=== PATIENT | female | born 1945 | race Caucasian/White ===

== ENCOUNTER 2022-01-27 21:35 | Inpatient (IN) | payer OTHER ==
[~2022-01-27] VITALS: Ht 162.6 cm; Wt 70.8 kg
[2022-01-27 21:36] VITALS: BP 167/71
[2022-01-27] MEDS ORDERED: ACETAMINOPHEN EXTRA STRENGTH 500 MG TAB PO ONE (22:10)
--- NOTE | 2022-01-27 22:36 | NUR ---
ATTACHED PATIENT ON THE PUREWICK. PATIENT ABLE TO TURN BUT DIFFICULTY TURNING D/T PAIN. MEDICATED PT WITH TYLENOL, WAITIN TO TAKE INTO EFFECT
[2022-01-27] MEDS ORDERED: ACET-10509 PO (22:52)
--- NOTE | 2022-01-27 23:49 | NUR ---
pt to CT and XR
--- NOTE | 2022-01-28 01:11 | NUR ---
Spoke with pt daughter Paulette about updates.
--- NOTE | 2022-01-28 01:51 | NUR ---
pt attempted to ambulated to the bathroom, pt walking with difficulty needs assistance. pt also has pain. ER made aware.
--- NOTE | 2022-01-28 01:58 | NUR ---
STEF THORPE re-assessed pt and will have CT scan of the Pelvis.
--- NOTE | 2022-01-28 01:59 | NUR ---
called sunni Caldwell for further updates.
[2022-01-28] MEDS ORDERED: HYDROcodone/APAP 5/325 MG 1 TAB TAB PO ONE (02:25)
[2022-01-28] MEDS ORDERED: HYDROcodone/APAP 5/325 MG 1 TAB TAB ONE (02:27)
--- NOTE | 2022-01-28 02:35 | NUR ---
PT TO CT
--- NOTE | 2022-01-28 02:56 | NUR ---
PT BACK FROM CT
--- NOTE | 2022-01-28 06:06 | NUR ---
swabbed pt for covid and sent to lab
--- NOTE | 2022-01-28 06:16 | NUR ---
attached purewick on patient. patient tolerated well but does c/o pain from movement.
[2022-01-28 06:36] LABS: ANION GAP 8.7 (8-16); CARBON DIOXIDE 26.7 mmol/L (21-32); CHLORIDE 106 mmol/L (98-107); CREATININE 0.7 mg/dL (0.6-1.3); GLUCOSE 131 mg/dL (74-106); POTASSIUM 4.4 mmol/L (3.5-5.1); SODIUM SERUM 137 mmol/L (136-145)
--- NOTE | 2022-01-28 06:39 | NUR ---
spoke with Paulette the daughter about pt condition and update that pt will be admitted or tx to [place].
[2022-01-28 06:41] LABS: BASOPHILS # (AUTO) 0.2 K/uL (0.00-0.22); BASOPHILS % (AUTO) 1.2 % (0.0-2.0); EOSINOPHILS # (AUTO) 0.2 K/uL (0-0.4); EOSINOPHILS % (AUTO) 1.7 % (0.0-4.0); HEMATOCRIT 35.1 % (36-48); HEMOGLOBIN 11.8 g/dL (12.0-16.0); LYMPHOCYTES # (AUTO) 2.4 K/uL (2.5-16.5); MEAN CORPUSCULAR HEMOGLOBIN 31 pg (27-31); MEAN CORPUSCULAR HGB CONC 34 g/dL (33-37); MEAN CORPUSCULAR VOLUME 91.8 fL (80-94); MONOCYTES # (AUTO) 1.1 K/uL (0.8-1.0); MONOCYTES % (AUTO) 9.4 % (1.7-9.3); NEUTROPHILS # (AUTO) 8.2 K/uL (1.8-7.7); NEUTROPHILS % (AUTO) 67.7 % (42.2-75.2); PLATELET COUNT (AUTO) 226 K/uL (140-450); RED BLOOD CELL COUNT(AUTO) 3.82 MIL/uL (4.20-5.40); RED CELL DISTRIBUTION WIDTH 15.6 % (11.6-13.7); WHITE BLOOD COUNT (AUTO) 12.1 K/uL (4.8-10.8)
[2022-01-28 06:49] LABS: UREA NITROGEN, BLOOD 15 mg/dL (7-18)
[2022-01-28] MEDS ORDERED: ONDANSETRON 4 MG/2 ML VIAL IVP ONE (06:55)
[2022-01-28] MEDS ORDERED: MORPHINE SULFATE 2 MG/ML SYR IVP PRN (06:55)
--- NOTE | 2022-01-28 07:18 | NUR ---
REPORT RECEIVED FROM VAUGHN RN. ASSUMED CARE AT THIS TIME
--- NOTE | 2022-01-28 07:18 | NUR ---
Pt report given to Willow FUCHS. Transfer of care at this time.
--- NOTE | 2022-01-28 07:23 | NUR ---
Prachi rojas in [facility] - 01/28/22 at 0724 by PHSEP PT ON TELEPSYCH CALL George/ MD RECINOS
--- NOTE | 2022-01-28 07:30 | NUR ---
pt at rest w/ eyes closed. purewick in place. bed at lowest position, bed rails upx2.
[2022-01-28] MEDS ORDERED: TRAM50TA3 PO (07:42)
[2022-01-28] MEDS ORDERED: MES60 PO (07:42)
[2022-01-28] MEDS ORDERED: LEVO0.087 PO (07:42)
[2022-01-28] MEDS ORDERED: FURO20TA8 PO (07:42)
[2022-01-28] MEDS ORDERED: APIX5TAB PO (07:42)
[2022-01-28] MEDS ORDERED: POTA10TA70 PO (07:42)
[2022-01-28] MEDS ORDERED: PANT40EC56 PO (07:42)
[2022-01-28] MEDS ORDERED: ISOS60TE70 PO (07:42)
[2022-01-28] MEDS ORDERED: AMLO10TA88 PO (07:42)
[2022-01-28] MEDS ORDERED: GABA-636 PO (07:42)
[2022-01-28] MEDS ORDERED: VENL25TA PO (07:42)
[2022-01-28] MEDS ORDERED: PROP10TA28 PO (07:42)
[2022-01-28] MEDS ORDERED: SUCR1TAB7 PO (07:44)
[2022-01-28] MEDS ORDERED: ATOR40TA40 PO (07:44)
[2022-01-28] MEDS ORDERED: NITR0.4T94 SL (07:44)
[2022-01-28] MEDS ORDERED: HYDROcodone/APAP 7.5/325 MG 1 TAB PO PRN (08:00)
[2022-01-28] MEDS ORDERED: NACL 0.9% 1,000 ML IV SCH (08:00)
--- NOTE | 2022-01-28 08:57 | NUR ---
Patient will be admitted to care of MD LEUNG. Admited to TELE. Will go to room 121B. Belongings list completed. Report to ISAAC PATEL.
--- NOTE | 2022-01-28 08:58 | NUR ---
The patient's care was reviewed and supervised by Christy Escobar RN.
[2022-01-28] MEDS ORDERED: POTASSIUM CHLORIDE 10 MEQ TABER PO PRN (09:05)
--- NOTE | 2022-01-28 09:05 | NUR ---
PT TRANSFERRED FROM ED. RECEIVED REPORT FROM ED NURSE. PT STABLE WITH LEFT HIP FRACTURE, ON BEDREST. S/P FALL. NO S/S OF DISTRESS. CALL LIGHT IN REACH. ALL SAFETY MEASURES IN PLACE. PUREWICK IN PLACE. IV FLUIDS RUNNING PER MD ORDER. MRSA COLLECTED
[2022-01-28] MEDS ORDERED: NITROGLYCERIN 0.4 MG TAB SL PRN (09:10)
[2022-01-28] MEDS: NACL 0.9% 1,000 ML IV SCH (09:10)
[2022-01-28] MEDS ORDERED: ACETAMINOPHEN 325 MG TAB PO PRN (09:10)
[2022-01-28 10:41] LABS: PROTHROMBIN TIME 10.4 secs (10.8-13.4)
[2022-01-28 10:47] LABS: AMYLASE 41 U/L (25-115); CHOL/HDL RATIO 2.4 (1-4.5); FREE T4 (FREE THYROXINE) 1.26 ng/dL (0.76-1.46); HDL CHOLESTEROL 59 mg/dL (40-60); LDL (CALC) 56 mg/dL (60-100); LIPASE 64 U/L (73-393); THYROID STIMULATING HORMONE 4.49 uIU/mL (0.34-3.74); TRIGLYCERIDES 140 mg/dL (30-150)
[2022-01-28 12:00] VITALS: BP 95/44
[2022-01-28] MEDS: SUCRALFATE 1 GM TAB PO SCH ×3 (12:19→20:48)
[2022-01-28] MEDS: HYDROcodone/APAP 7.5/325 MG 1 TAB PO PRN (12:19)
[2022-01-28] MEDS: GABAPENTIN 100 MG CAP PO SCH ×2 (12:19→17:07)
[2022-01-28 13:06] LABS: APPEARANCE,URINE CLEAR (CLEAR); BILIRUBIN,URINE NEGATIVE (NEGATIVE); BLOOD, URINE TRACE-I (NEGATIVE); COLOR,URINE YELLOW (YELLOW); LEUKOCYTE ESTERASE ,URINE NEGATIVE (NEGATIVE); NITRITE, URINE NEGATIVE (NEGATIVE); PH,URINE 5.5 (5.0-9.0); UGLUCOSE NEGATIVE (NEGATIVE)
[2022-01-28 13:15] LABS: BARBITURATE, URINE NEGATIVE ng/ml (NEG <=200); BENZODIAZEPINE, URINE NEGATIVE ng/mL (NEG <=200); CANNABINOID, URINE NEGATIVE ng/mL (NEG <=50); COCAINE, URINE NEGATIVE ng/mL (NEG <=300); OPIATE, URINE POSITIVE ng/mL (NEG <=2000); PHENCYCLIDINE SCREEN,URINE NEGATIVE ng/mL (NEG <=25)
[2022-01-28 13:20] LABS: OTHER CASTS, URINE None Seen /LPF (None Seen); WBC,URINE 0-5 /HPF (0-5)
[2022-01-28 16:00] VITALS: BP 115/52
--- NOTE | 2022-01-28 16:52 | NUR ---
PATIENT HAS BEEN SCREENED AND CATEGORIZED LOW NUTRITION RISK. PATIENT WILL BE SEEN WITHIN 7 DAYS OF ADMISSION. 02/04/[address]
[2022-01-28] MEDS: MORPHINE SULFATE 2 MG/ML SYR IVP PRN ×2 (17:08→21:09)
--- NOTE | 2022-01-28 19:40 | NUR ---
ENDORSED PT TO ASSET PROTECTION SPECIALIST NURSE
[2022-01-28 20:00] VITALS: BP 144/60
[2022-01-28] MEDS: DOCUSATE SODIUM 100 MG GELCAP PO SCH (20:48)
[2022-01-28] MEDS: APIXABAN 2.5 MG TAB PO SCH (20:49)
[2022-01-28] MEDS: FUROSEMIDE 20 MG TAB PO SCH (20:49)
[2022-01-28] MEDS: PROPRANOLOL 20 MG TAB PO SCH (20:49)
[2022-01-28] MEDS: PYRIDOSTIGMINE 60 MG TAB PO SCH (20:49)
[2022-01-28] MEDS ORDERED: PROPRANOLOL HCL PO SCH (21:00)
[2022-01-28] MEDS: ONDANSETRON 4 MG/2 ML VIAL IVP PRN (22:20)
[2022-01-29] VITALS: BP 114/58
[2022-01-29] MEDS: MORPHINE SULFATE 2 MG/ML SYR IVP PRN ×5 (01:44→23:32)
[2022-01-29 04:00] VITALS: BP 125/61
[2022-01-29 06:13] LABS: BASOPHILS # (AUTO) 0.1 K/uL (0.00-0.22); BASOPHILS % (AUTO) 0.7 % (0.0-2.0); EOSINOPHILS # (AUTO) 0.2 K/uL (0-0.4); EOSINOPHILS % (AUTO) 2.5 % (0.0-4.0); HEMATOCRIT 34.6 % (36-48); HEMOGLOBIN 11.4 g/dL (12.0-16.0); LYMPHOCYTES % (AUTO) 24.5 % (20.5-51.1); MEAN CORPUSCULAR HEMOGLOBIN 30 pg (27-31); MEAN CORPUSCULAR HGB CONC 33 g/dL (33-37); MEAN CORPUSCULAR VOLUME 91.2 fL (80-94); MONOCYTES # (AUTO) 0.8 K/uL (0.8-1.0); MONOCYTES % (AUTO) 9.7 % (1.7-9.3); NEUTROPHILS % (AUTO) 62.6 % (42.2-75.2); PLATELET COUNT (AUTO) 217 K/uL (140-450); RED CELL DISTRIBUTION WIDTH 15.5 % (11.6-13.7)
[2022-01-29 06:22] LABS: MAGNESIUM 1.7 mg/dL (1.8-2.4); PHOSPHORUS 3.9 mg/dL (2.5-4.9)
[2022-01-29 06:28] LABS: CARBON DIOXIDE 30.5 mmol/L (21-32); CHLORIDE 106 mmol/L (98-107); CREATININE 0.7 mg/dL (0.6-1.3); GLUCOSE 108 mg/dL (74-106); POTASSIUM 3.5 mmol/L (3.5-5.1); SODIUM SERUM 141 mmol/L (136-145); UREA NITROGEN, BLOOD 13 mg/dL (7-18)
[2022-01-29 08:00] VITALS: BP 144/60
[2022-01-29] MEDS: DOCUSATE SODIUM 100 MG GELCAP PO SCH ×2 (08:22→21:44)
[2022-01-29] MEDS: SUCRALFATE 1 GM TAB PO SCH ×4 (08:22→21:47)
[2022-01-29] MEDS: PANTOPRAZOLE 40 MG INJ VIAL IVP SCH (08:22)
[2022-01-29] MEDS: APIXABAN 2.5 MG TAB PO SCH ×2 (08:23→21:44)
[2022-01-29] MEDS: PROPRANOLOL 20 MG TAB PO SCH ×2 (08:24→21:00)
[2022-01-29] MEDS: GABAPENTIN 100 MG CAP PO SCH ×3 (08:25→17:25)
[2022-01-29] MEDS: FUROSEMIDE 20 MG TAB PO SCH ×2 (08:25→21:00)
[2022-01-29] MEDS: PYRIDOSTIGMINE 60 MG TAB PO SCH ×2 (08:25→21:46)
[2022-01-29] MEDS: ISOSORBIDE MONONITRATE 30 MG TABER PO SCH (08:40)
[2022-01-29] MEDS: POTASSIUM CHLORIDE 10 MEQ TABER PO SCH (08:41)
[2022-01-29] MEDS: amLODIPine 5 MG TAB PO SCH (08:41)
[2022-01-29] MEDS: ATORVASTATIN 20 MG TAB PO SCH (08:41)
[2022-01-29] MEDS: LEVOTHYROXINE 0.088 MG TAB PO SCH (08:41)
[2022-01-29] MEDS ORDERED: PANTOPRAZOLE 40 MG TABEC PO SCH (09:00)
[2022-01-29] MEDS ORDERED: NON-FORMULARY ITEM (Atorvastatin Calcium 1 TAB) PO SCH (09:00)
[2022-01-29] MEDS ORDERED: NON-FORMULARY ITEM (Isosorbide Mononitrate (Isosorbide Mononitrate ER) 1 TAB) PO SCH (09:00)
[2022-01-29] MEDS ORDERED: NON-FORMULARY ITEM (Amlodipine Besylate 1 TAB) PO SCH (09:00)
[2022-01-29] MEDS ORDERED: VENLAFAXINE HCL PO SCH (09:00)
[2022-01-29] MEDS: MAG SULF 2000 MG/WATER PREMIX 50 ML IV PRN (10:38)
[2022-01-29 12:00] VITALS: BP 139/64
[2022-01-29] MEDS: NACL 0.9% 1,000 ML IV SCH (13:07)
[2022-01-29] MEDS: ONDANSETRON 4 MG/2 ML VIAL IVP PRN (13:43)
[2022-01-29 16:00] VITALS: BP 128/71
[2022-01-29 20:00] VITALS: BP 105/63
--- NOTE | 2022-01-29 21:44 | NUR ---
SCHEDULED MEDICATIONS ADMINISTERED PER MD ORDER. PATIENT AWAKE ALERT VERBALLY RESPONSIVE. ABLE TO COMMUNICATE WITH HER NEEDS. NO SOB. NO COMPLAINTS OF PAIN AT THIS TIME. CALL LIGHT WITHIN REACH. SAFETY MEASURES IN PLACE.
--- NOTE | 2022-01-29 23:15 | NUR ---
IV LINE INFILTRATED. STARTED A NEW IV ON THE LEFT HAND WITH GOOD RETURN OF BLOOD. TOLERATED WELL.
--- NOTE | 2022-01-29 23:27 | NUR ---
COMPLAINED OF SEVERE LEFT PELVIC PAIN, MEDICATED.
[2022-01-30] VITALS: BP 124/63
[2022-01-30] MEDS: NACL 0.9% 1,000 ML IV SCH (01:10)
[2022-01-30 04:00] VITALS: BP 137/66
[2022-01-30 06:25] LABS: BASOPHILS # (AUTO) 0.1 K/uL (0.00-0.22); BASOPHILS % (AUTO) 0.8 % (0.0-2.0); EOSINOPHILS # (AUTO) 0.2 K/uL (0-0.4); EOSINOPHILS % (AUTO) 2.6 % (0.0-4.0); HEMATOCRIT 32.2 % (36-48); HEMOGLOBIN 10.7 g/dL (12.0-16.0); LYMPHOCYTES # (AUTO) 2.2 K/uL (2.5-16.5); LYMPHOCYTES % (AUTO) 26.4 % (20.5-51.1); MEAN CORPUSCULAR HEMOGLOBIN 30 pg (27-31); MEAN CORPUSCULAR HGB CONC 33 g/dL (33-37); MEAN CORPUSCULAR VOLUME 91.8 fL (80-94); MONOCYTES # (AUTO) 0.8 K/uL (0.8-1.0); MONOCYTES % (AUTO) 9.5 % (1.7-9.3); NEUTROPHILS # (AUTO) 5.1 K/uL (1.8-7.7); NEUTROPHILS % (AUTO) 60.7 % (42.2-75.2); PLATELET COUNT (AUTO) 219 K/uL (140-450); RED BLOOD CELL COUNT(AUTO) 3.51 MIL/uL (4.20-5.40); RED CELL DISTRIBUTION WIDTH 15.7 % (11.6-13.7); WHITE BLOOD COUNT (AUTO) 8.4 K/uL (4.8-10.8)
[2022-01-30 06:28] LABS: ANION GAP 11.4 (8-16); CARBON DIOXIDE 27.2 mmol/L (21-32); CHLORIDE 108 mmol/L (98-107); CREATININE 0.7 mg/dL (0.6-1.3); GLUCOSE 145 mg/dL (74-106); POTASSIUM 3.6 mmol/L (3.5-5.1); SODIUM SERUM 143 mmol/L (136-145); UREA NITROGEN, BLOOD 14 mg/dL (7-18)
[2022-01-30 06:34] LABS: MAGNESIUM 2.1 mg/dL (1.8-2.4); PHOSPHORUS 3.4 mg/dL (2.5-4.9)
--- NOTE | 2022-01-30 07:01 | NUR ---
GAVE REPORT TO DAY SHIFT NURSE FOR CONTINUITY OF CARE.
[2022-01-30 08:00] VITALS: BP 149/72
[2022-01-30] MEDS: PANTOPRAZOLE 40 MG INJ VIAL IVP SCH (09:06)
[2022-01-30] MEDS: SUCRALFATE 1 GM TAB PO SCH ×4 (09:06→21:50)
[2022-01-30] MEDS: DOCUSATE SODIUM 100 MG GELCAP PO SCH ×2 (09:07→21:50)
[2022-01-30] MEDS: ISOSORBIDE MONONITRATE 30 MG TABER PO SCH (09:10)
[2022-01-30] MEDS: APIXABAN 2.5 MG TAB PO SCH ×2 (09:10→21:52)
[2022-01-30] MEDS: ATORVASTATIN 20 MG TAB PO SCH (09:11)
[2022-01-30] MEDS: POTASSIUM CHLORIDE 10 MEQ TABER PO SCH (09:11)
[2022-01-30] MEDS: PROPRANOLOL 20 MG TAB PO SCH ×2 (09:11→21:51)
[2022-01-30] MEDS: FUROSEMIDE 20 MG TAB PO SCH ×2 (09:11→23:03)
[2022-01-30] MEDS: amLODIPine 5 MG TAB PO SCH (09:12)
[2022-01-30] MEDS: LEVOTHYROXINE 0.088 MG TAB PO SCH (09:12)
[2022-01-30] MEDS: GABAPENTIN 100 MG CAP PO SCH ×3 (09:12→17:03)
[2022-01-30] MEDS: PYRIDOSTIGMINE 60 MG TAB PO SCH ×2 (09:12→21:50)
[2022-01-30] MEDS: MORPHINE SULFATE 2 MG/ML SYR IVP PRN ×2 (10:34→22:28)
[2022-01-30 12:00] VITALS: BP 132/69
[2022-01-30 16:00] VITALS: BP 137/66
[2022-01-30] MEDS: HYDROcodone/APAP 7.5/325 MG 1 TAB PO PRN (18:19)
--- NOTE | 2022-01-30 19:20 | NUR ---
RECEIVED REPORT FROM DAY SHIFT NURSE RANJEET FOR CONTINUITY OF CARE. PT AWAKE IN BED WITH FAMILY MEMBER AT BEDSIDE. RESPIRATIONS EVEN AND UNLABORED ON RA. NO DISTRESS NOTED. ON MINE ENGINEERING SUPERVISOR. A&O4, ABLE TO MAKE NEEDS KNOWN. CALL LIGHT WITHIN REACH. SAFETY PRECAUTIONS IN PLACE.
[2022-01-30 20:00] VITALS: BP_SYST 116; BP_SYST 118; BP_DIAS 68; BP_DIAS 75
--- NOTE | 2022-01-30 21:50 | NUR ---
ADMINISTERED DUE MEDS. PT TEACHING ABOUT MEDS GIVEN. PT VERBALIZED UNDERSTANDING.
--- NOTE | 2022-01-30 22:28 | NUR ---
PT COMPLAINED OF HIP PAIN 10/30. PRN PAIN MED ADMINISTERED BY AMANDA BABB.
[2022-01-31] VITALS: BP 118/75
--- NOTE | 2022-01-31 01:20 | NUR ---
PT SLEEPING. BREATHING EVEN AND UNLABORED. NO DISTRESS NOTED. SAFETY PRECAUTIONS IN PLACE.
[2022-01-31 04:00] VITALS: BP 139/82
--- NOTE | 2022-01-31 05:42 | NUR ---
CLEANED AND CHANGED PT DIAPER. PT TOLERATED WELL. NO C/O OF PAIN AT THIS TIME.
[2022-01-31] MEDS: LEVOTHYROXINE 0.088 MG TAB PO SCH (05:50)
[2022-01-31 06:15] LABS: BASOPHILS # (AUTO) 0.1 K/uL (0.00-0.22); BASOPHILS % (AUTO) 0.6 % (0.0-2.0); EOSINOPHILS # (AUTO) 0.2 K/uL (0-0.4); EOSINOPHILS % (AUTO) 1.8 % (0.0-4.0); HEMATOCRIT 35.4 % (36-48); HEMOGLOBIN 11.7 g/dL (12.0-16.0); LYMPHOCYTES # (AUTO) 2.4 K/uL (2.5-16.5); LYMPHOCYTES % (AUTO) 16.7 % (20.5-51.1); MEAN CORPUSCULAR HEMOGLOBIN 30 pg (27-31); MEAN CORPUSCULAR HGB CONC 33 g/dL (33-37); MEAN CORPUSCULAR VOLUME 91.5 fL (80-94); MONOCYTES # (AUTO) 1.3 K/uL (0.8-1.0); NEUTROPHILS # (AUTO) 10.2 K/uL (1.8-7.7); NEUTROPHILS % (AUTO) 71.9 % (42.2-75.2); PLATELET COUNT (AUTO) 262 K/uL (140-450); RED BLOOD CELL COUNT(AUTO) 3.87 MIL/uL (4.20-5.40); RED CELL DISTRIBUTION WIDTH 16.1 % (11.6-13.7); WHITE BLOOD COUNT (AUTO) 14.1 K/uL (4.8-10.8)
[2022-01-31 06:52] LABS: MAGNESIUM 1.7 mg/dL (1.8-2.4)
[2022-01-31 07:15] LABS: PHOSPHORUS 3.4 mg/dL (2.5-4.9)
--- NOTE | 2022-01-31 07:23 | NUR ---
GAVE BEDSIDE REPORT TO DAY SHIFT NURSE ANNI FOR CONTINUITY OF CARE. ALL NEEDS MET THROUGHOUT SHIFT. PT IS STABLE.
--- NOTE | 2022-01-31 07:30 | NUR ---
RECEIVED REPORT FROM NIGHTSHIFT NURSE. PT A/O X4. ABLE TO MAKE NEEDS KNOWN. NO SOB OR RESPIRATORY DISTRESS. ON RA. DENIES PAIN AT THIS TIME. ON REGULAR DIET. L WRIST #24 SL. NEEDS ALL MET AT THIS TIME. ALL SAFETY MEASURES IN PLACE.
[2022-01-31 07:49] LABS: ANION GAP 15.3 (8-16); CARBON DIOXIDE 27.5 mmol/L (21-32); CHLORIDE 103 mmol/L (98-107); CREATININE 0.7 mg/dL (0.6-1.3); GLUCOSE 137 mg/dL (74-106); POTASSIUM 3.8 mmol/L (3.5-5.1); SODIUM SERUM 142 mmol/L (136-145); UREA NITROGEN, BLOOD 8 mg/dL (7-18)
[2022-01-31 08:00] VITALS: BP 127/64
[2022-01-31] MEDS: APIXABAN 2.5 MG TAB PO SCH ×2 (09:26→21:17)
[2022-01-31] MEDS: ISOSORBIDE MONONITRATE 30 MG TABER PO SCH (09:34)
[2022-01-31] MEDS: PANTOPRAZOLE 40 MG INJ VIAL IVP SCH (09:35)
[2022-01-31] MEDS: GABAPENTIN 100 MG CAP PO SCH ×3 (09:35→17:50)
[2022-01-31] MEDS: FUROSEMIDE 20 MG TAB PO SCH ×2 (09:35→21:16)
[2022-01-31] MEDS: PROPRANOLOL 20 MG TAB PO SCH ×2 (09:35→21:16)
[2022-01-31] MEDS: SUCRALFATE 1 GM TAB PO SCH ×4 (09:35→21:15)
[2022-01-31] MEDS: DOCUSATE SODIUM 100 MG GELCAP PO SCH ×2 (09:35→21:15)
[2022-01-31] MEDS: POTASSIUM CHLORIDE 10 MEQ TABER PO SCH (09:36)
[2022-01-31] MEDS: amLODIPine 5 MG TAB PO SCH (09:36)
[2022-01-31] MEDS: PYRIDOSTIGMINE 60 MG TAB PO SCH ×2 (09:37→21:15)
[2022-01-31] MEDS: ATORVASTATIN 20 MG TAB PO SCH ×2 (09:40→21:16)
[2022-01-31] MEDS: MORPHINE SULFATE 2 MG/ML SYR IVP PRN ×2 (11:14→17:51)
--- NOTE | 2022-01-31 11:15 | NUR ---
PRN MORPHINE GIVEN. PT WITH CORAZON BENOIT SOFT. NOTIFIED ZINC PLATER OF BM AND ZINC PLATERYuriy CRANE STATES SHE WILL SEE THE PT. ALL NEEDS MET. ALL SAFETY MEASURES IN PLACE.
[2022-01-31 12:00] VITALS: BP 104/54
[2022-01-31 16:00] VITALS: BP 91/49
--- NOTE | 2022-01-31 17:15 | NUR ---
PT C/O MID ABDOMINAL SHARP PAIN 09/29. STATES MORPHINE ALLEVIATES PAIN ONLY FOR A BIT. CONTACTED MD AND MD ORDER FOR KUB. DAUGHTER AT BEDSIDE AND UPDATED PLAN OF CARE EXPLAINED. NEEDS ALL MET AT THIS TIME. PT RESTING COMFORTABLY. ALL SAFETY MEASURES IN PLACE.
--- NOTE | 2022-01-31 17:50 | NUR ---
PRN MORPHINE GIVEN.
--- NOTE | 2022-01-31 19:22 | NUR ---
RECEIVED REPORT FROM DAY SHIFT NURSE ANNI FOR CONTINUITY OF CARE. PT AWAKE IN BED WITH FAMILY MEMBER AT BEDSIDE. RESPIRATIONS EVEN AND UNLABORED ON RA. NO DISTRESS NOTED. ON BUILDER OPERATOR. A&O4, ABLE TO MAKE NEEDS KNOWN. CALL LIGHT WITHIN REACH. SAFETY PRECAUTIONS IN PLACE.
--- NOTE | 2022-01-31 19:29 | NUR ---
REPORT GIVEN TO NIGHTSINFT NURSEHAYDEN FOR CONTINUITY OF CARE.
[2022-01-31 20:00] VITALS: BP 115/62
--- NOTE | 2022-01-31 20:11 | NUR ---
Patient's Plan of Care was discussed and reviewed with HAYDEN FUCHS, CALL LIGHT IS WITHIN THE REACH, WILL CONTINUE TO MONITOR PATIENT.
--- NOTE | 2022-01-31 21:25 | NUR ---
ADMINISTERED DUE MEDS. PT TEACHING ABOUT MEDS GIVEN. PT VERBALIZED UNDERSTANDING.
[2022-01-31] MEDS: MAG SULF 2000 MG/WATER PREMIX 50 ML IV PRN (21:59)
--- NOTE | 2022-01-31 21:59 | NUR ---
IV MG SULF ADINISTERED BY AMANDA WILFRIDO FOR MG 1.7. NO ADVERSE REACTION NOTED.
[2022-02-01] VITALS: BP 119/69
--- NOTE | 2022-02-01 01:55 | NUR ---
PT SLEEPING. BREATHING EVEN AND UNLABORED. NO DISTRESS NOTED. SAFETY PRECAUTIONS IN PLACE.
[2022-02-01 04:00] VITALS: BP 115/65
--- NOTE | 2022-02-01 05:25 | NUR ---
CLEANED AND CHANGED PT DIAPER. PT TOLERATED WELL. PT REMAINED CLEAN AND DRY.
[2022-02-01] MEDS: LEVOTHYROXINE 0.088 MG TAB PO SCH (05:40)
[2022-02-01] MEDS: MORPHINE SULFATE 2 MG/ML SYR IVP PRN ×2 (05:48→17:44)
--- NOTE | 2022-02-01 05:49 | NUR ---
PATIENT IS COMPLAIN OF PAIN , MEDICATED WITH MORPHINE IV PER DOCTOR ORDER, CALL LIGHT IS WITHIN THE REACH, WILL CONTINUE TO MONITOR PATIENT.
[2022-02-01 06:12] LABS: BASOPHILS # (AUTO) 0.1 K/uL (0.00-0.22); BASOPHILS % (AUTO) 0.7 % (0.0-2.0); EOSINOPHILS # (AUTO) 0.3 K/uL (0-0.4); EOSINOPHILS % (AUTO) 2.9 % (0.0-4.0); HEMATOCRIT 34.3 % (36-48); HEMOGLOBIN 11.3 g/dL (12.0-16.0); LYMPHOCYTES # (AUTO) 2.2 K/uL (2.5-16.5); LYMPHOCYTES % (AUTO) 19.1 % (20.5-51.1); MEAN CORPUSCULAR HEMOGLOBIN 30 pg (27-31); MEAN CORPUSCULAR HGB CONC 33 g/dL (33-37); MEAN CORPUSCULAR VOLUME 91.4 fL (80-94); MONOCYTES # (AUTO) 1.1 K/uL (0.8-1.0); MONOCYTES % (AUTO) 9.4 % (1.7-9.3); NEUTROPHILS # (AUTO) 7.7 K/uL (1.8-7.7); NEUTROPHILS % (AUTO) 67.9 % (42.2-75.2); PLATELET COUNT (AUTO) 259 K/uL (140-450); RED BLOOD CELL COUNT(AUTO) 3.75 MIL/uL (4.20-5.40); RED CELL DISTRIBUTION WIDTH 15.7 % (11.6-13.7); WHITE BLOOD COUNT (AUTO) 11.3 K/uL (4.8-10.8)
[2022-02-01 06:31] LABS: ANION GAP 13.1 (8-16); CARBON DIOXIDE 29.5 mmol/L (21-32); CHLORIDE 102 mmol/L (98-107); CREATININE 0.7 mg/dL (0.6-1.3); GLUCOSE 132 mg/dL (74-106); POTASSIUM 3.6 mmol/L (3.5-5.1); SODIUM SERUM 141 mmol/L (136-145); UREA NITROGEN, BLOOD 11 mg/dL (7-18)
[2022-02-01 06:45] LABS: MAGNESIUM 2.3 mg/dL (1.8-2.4); PHOSPHORUS 3.9 mg/dL (2.5-4.9)
--- NOTE | 2022-02-01 07:04 | NUR ---
GAVE BEDSIDE REPORT TO AMANDA HI FOR CONTINUITY OF CARE. ALL NEEDS MET THROUGHOUT SHIFT. PT IS STABLE.
--- NOTE | 2022-02-01 08:04 | NUR ---
NURSES NOTE PATIENT RECEIVED AT BED SIDE , SLEEPING , A/OX4 , VSS , PACED ON MONITOR , DISCHARGING ONGOING FOR SNF PENDING NO COMPLAIN AT THIS TIME , SKIN INTACT , BED REST , ON REGULAR DIET , NO COMPOLAIN AT THIS TIME , WILL CONTINUE OBSERVE .
[2022-02-01] MEDS: PANTOPRAZOLE 40 MG INJ VIAL IVP SCH (08:27)
[2022-02-01] MEDS: SUCRALFATE 1 GM TAB PO SCH ×4 (08:28→21:00)
[2022-02-01] MEDS: DOCUSATE SODIUM 100 MG GELCAP PO SCH ×2 (08:28→21:00)
[2022-02-01] MEDS: APIXABAN 2.5 MG TAB PO SCH ×2 (08:29→21:00)
[2022-02-01] MEDS: POTASSIUM CHLORIDE 10 MEQ TABER PO SCH (08:30)
[2022-02-01] MEDS: PROPRANOLOL 20 MG TAB PO SCH ×2 (08:30→21:00)
[2022-02-01] MEDS: ISOSORBIDE MONONITRATE 30 MG TABER PO SCH (08:30)
[2022-02-01] MEDS: FUROSEMIDE 20 MG TAB PO SCH ×2 (08:31→21:00)
[2022-02-01] MEDS: amLODIPine 5 MG TAB PO SCH (08:31)
[2022-02-01] MEDS: PYRIDOSTIGMINE 60 MG TAB PO SCH ×2 (08:31→21:00)
[2022-02-01] MEDS: GABAPENTIN 100 MG CAP PO SCH ×3 (08:31→16:07)
[2022-02-01 09:14] VITALS: BP 120/60
--- NOTE | 2022-02-01 11:09 | NUR ---
DC PLANNING REFERRAL PACKET SENT TO [facility]. Addendum: 02/01/22 at 1515 by Frankie MORAN CLINICAL PACKET SENT TO [phone], CONFIRMATION FAXED RECEIVED 12:57PM . INSURANCE WORKING ON IDENTIFYING SNF FOR PT.
--- NOTE | 2022-02-01 12:41 | NUR ---
NURSES NOTE PATIENT A/OX4 , VSS . SINUS RHYTHM ON MONITOR , ON ROOM AIR , INCONTINENT X2 , ON REGULAR DIET NO COMPLAIN AT THIS TIME , STILL UNDER OBSERVE .
[2022-02-01 12:52] VITALS: BP 104/59
--- NOTE | 2022-02-01 16:00 | NUR ---
DISCHARGE PLANNING PATIENT IS A 77 YEAR OLD FEMALE ADMITTED TO THE [facility]/ED ON 01/28/2022 DUE TO PELVIC FRACTURE. SW MEET WITH PATIENT AND HER DAUGHTER AT BEDSIDE TO DISCUSS AND GATHER PATIENT'S COLLATERAL INFORMATION. PATIENT WAS AWAKE AND ALERT ABLE TO PROVIDE HER OWN INFORMATION. PER PATIENT SHE LIVES AT HOME WITH HER ADULT DAUGHTER BIANCA FIELDS, SHE REPORTED NOT HAVING A.D. AND DECLINED INF. FORMS PROVIDED BY SW. PER PATIENT SHE ALREADY HAS FORMS AT HOME AND NEEDS TO COMPLETE THEM. PATIENT REPORTED THAT HER DAUGHTER IS HER EMERGENCY CONTACT AND HER MEDICAL DECISION MAKER. PATIENT REPORTED THAT SHE HAS A PCP WITH [facility] WHO SHE LAST HAD A TELECONFERENCE OVER THE PHONE LAST Monday01/28/2022. PER PATIENT SHE HAS NO ISSUES GETTING OR TAKING HER MEDICATIONS AND SHE ALSO HAS A WALKER AT HOME HER ONLY DME NOW. PER PATIENT SHE WANT TO RETURN BACK HOME WHEN SHE IS READY AND STABLE TO DISCHARGE. PER DAUGHTER SHE IS WILLING TO DISCUSS MD. RECOMMENDATIONS TO [facility] OR [facility] BUT NO SNF. SW THANKED PATIENT AND DAUGHTER FOR THE INFORMATION. SW/CM WILL FOLLOW UP NEEDED.
[2022-02-01 16:28] VITALS: BP 96/50
--- NOTE | 2022-02-01 17:25 | NUR ---
NURSES NOTE PATIENT RECEIVED AT BED SIDE , SLEEPING , A/OX4 , VSS , PACED ON MONITOR , DISCHARGING ONGOING FOR SNF PENDING NO COMPLAIN AT THIS TIME , SKIN INTACT , BED REST , INCONTINENT X2 ,ON REGULAR DIET , NO COMPLAIN AT THIS TIME , WILL CONTINUE OBSERVE .
--- NOTE | 2022-02-01 19:21 | NUR ---
REPORT GIVEN TO NIGHT NURSE ALL HER QUESTION ANSWER .
[2022-02-01 20:00] VITALS: BP 105/55
--- NOTE | 2022-02-01 20:00 | NUR ---
RECEIVED IN BED AWAKE DAUGHTER AT BEDSIDE ASSESSMENT COMPLETED PLAN OF CARE REVIEWED PT AWAITING PLACEMENT FOR REHAB DENIES THE NEED FOR PAIN MEDICATION AT THIS TIME WILL CONTINUE TO MONITOR AND ASSESS CALL LIGHT IN REACH
[2022-02-01] MEDS: ATORVASTATIN 20 MG TAB PO SCH (21:00)
[2022-02-02] VITALS: BP 109/61
[2022-02-02] MEDS: MORPHINE SULFATE 2 MG/ML SYR IVP PRN ×2 (03:01→16:37)
--- NOTE | 2022-02-02 03:03 | NUR ---
MEDICATED FOR LEFT PELVIC PAIN ORDERED WILL CONTINUE TO MONITOR AND ASSESS INCONTINENT OF URINE CLEANED AND PERICARE RENDERED CALL LIGHT IN REACH
[2022-02-02 04:00] VITALS: BP 111/64
[2022-02-02] MEDS: LEVOTHYROXINE 0.088 MG TAB PO SCH (05:21)
[2022-02-02 05:55] LABS: BASOPHILS # (AUTO) 0.1 K/uL (0.00-0.22); BASOPHILS % (AUTO) 0.9 % (0.0-2.0); EOSINOPHILS # (AUTO) 0.4 K/uL (0-0.4); EOSINOPHILS % (AUTO) 3.8 % (0.0-4.0); HEMATOCRIT 33.6 % (36-48); HEMOGLOBIN 11.3 g/dL (12.0-16.0); LYMPHOCYTES # (AUTO) 2.2 K/uL (2.5-16.5); LYMPHOCYTES % (AUTO) 20.7 % (20.5-51.1); MEAN CORPUSCULAR HEMOGLOBIN 31 pg (27-31); MEAN CORPUSCULAR HGB CONC 34 g/dL (33-37); MEAN CORPUSCULAR VOLUME 91.1 fL (80-94); MONOCYTES % (AUTO) 9.2 % (1.7-9.3); NEUTROPHILS # (AUTO) 7.1 K/uL (1.8-7.7); NEUTROPHILS % (AUTO) 65.4 % (42.2-75.2); PLATELET COUNT (AUTO) 278 K/uL (140-450); RED BLOOD CELL COUNT(AUTO) 3.68 MIL/uL (4.20-5.40); RED CELL DISTRIBUTION WIDTH 15.5 % (11.6-13.7); WHITE BLOOD COUNT (AUTO) 10.8 K/uL (4.8-10.8)
[2022-02-02 06:20] LABS: ANION GAP 7.1 (8-16); CARBON DIOXIDE 30.8 mmol/L (21-32); CHLORIDE 102 mmol/L (98-107); CREATININE 0.7 mg/dL (0.6-1.3); GLUCOSE 123 mg/dL (74-106); POTASSIUM 3.9 mmol/L (3.5-5.1); SODIUM SERUM 136 mmol/L (136-145); UREA NITROGEN, BLOOD 12 mg/dL (7-18)
[2022-02-02 06:36] LABS: PHOSPHORUS 3.5 mg/dL (2.5-4.9)
--- NOTE | 2022-02-02 07:35 | NUR ---
RECEIVED PT FROM NIGHT RN, PT IS AWAKE, ALERT AND ORIENTED, ON ROOM AIR, ,SEATED ON THE BED WITH SIDE RAILS UP AND CALL LIGHT WITHIN REACH, IV LINE NOTED ON THE LEFT HAND G. 24 ON SALINE LOCK, NO SIGN OF DISTRESS NOTED AND WILL CONTINUE TO MONITOR PT.
[2022-02-02 08:00] VITALS: BP 124/61
[2022-02-02] MEDS: PANTOPRAZOLE 40 MG INJ VIAL IVP SCH (09:39)
[2022-02-02] MEDS: DOCUSATE SODIUM 100 MG GELCAP PO SCH ×2 (09:39→21:06)
[2022-02-02] MEDS: SUCRALFATE 1 GM TAB PO SCH ×4 (09:39→21:05)
[2022-02-02] MEDS: APIXABAN 2.5 MG TAB PO SCH ×2 (09:40→21:11)
[2022-02-02] MEDS: POTASSIUM CHLORIDE 10 MEQ TABER PO SCH (09:41)
[2022-02-02] MEDS: amLODIPine 5 MG TAB PO SCH (09:42)
[2022-02-02] MEDS: PYRIDOSTIGMINE 60 MG TAB PO SCH ×2 (09:42→21:08)
[2022-02-02] MEDS: GABAPENTIN 100 MG CAP PO SCH ×3 (09:42→16:35)
[2022-02-02] MEDS: PROPRANOLOL 20 MG TAB PO SCH ×2 (09:43→21:08)
[2022-02-02] MEDS: FUROSEMIDE 20 MG TAB PO SCH ×2 (09:43→21:08)
[2022-02-02] MEDS: ISOSORBIDE MONONITRATE 30 MG TABER PO SCH (09:44)
--- NOTE | 2022-02-02 11:30 | NUR ---
PT WAS REPOSITIONED NOW
[2022-02-02 12:00] VITALS: BP 128/47
[2022-02-02] MEDS: LACTULOSE 20 GM/30 ML UDC PO SCH (13:08)
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
[2022-02-02 16:00] VITALS: BP 136/63
--- NOTE | 2022-02-02 16:37 | NUR ---
PT COMPLAINED OF 9/10 PAIN AND WAS MEDICATED.
[2022-02-02] MEDS: HYDROcodone/APAP 7.5/325 MG 1 TAB PO PRN (18:10)
--- NOTE | 2022-02-02 18:15 | NUR ---
SENT A MESSAGE TO DR. PEREZ THAT FAMILY WANTS TO GET AN UPDATE OF THE PT'S PLAN OF CARE.
--- NOTE | 2022-02-02 19:33 | NUR ---
ENDORSED PT TO NIGHT RN FOR CONTINUITY OF CARE, PT IS STABLE AT THIS TIME.
--- NOTE | 2022-02-02 19:34 | NUR ---
RECEIVED REPORT FROM DAY SHIFT NURSE. PATIENT AWAKE ALERT ORIENTED. ABLE TO COMMUNICATE WITH HER NEEDS. NO DISTRESS ON ROOM AIR. BREATHING REGULAR UNLABORED. IV ACCESS ON THE LEFT HAND 24 GAUGE. NO COMPLAINTS OF PAIN AT THIS TIME. SAFETY MEASURES ARE IN PLACE. CALL LIGHT WITHIN REACH.
[2022-02-02 20:00] VITALS: BP 124/56
--- NOTE | 2022-02-02 21:05 | NUR ---
ALL SCHEDULED DUE MEDICATIONS ADMINISTERED.
[2022-02-02] MEDS: ATORVASTATIN 20 MG TAB PO SCH (21:08)
[2022-02-03] VITALS: BP 134/66
--- NOTE | 2022-02-03 02:39 | NUR ---
PATIENT SLEEPING. BREATHING REGULAR NON LABORED. CALL LIGHT WITHIN REACH.
[2022-02-03 04:53] VITALS: BP 120/60
[2022-02-03] MEDS: LEVOTHYROXINE 0.088 MG TAB PO SCH (05:53)
--- NOTE | 2022-02-03 07:23 | NUR ---
GAVE REPORT TO DAY SHIFT NURSE MARILIA FOR CONTINUITY OF CARE. PATIENT STABLE DURING THE SHIFT.
--- NOTE | 2022-02-03 07:24 | NUR ---
RECEIVED PT FROM PURCHASING SUPERVISOR NURSE FOR CONTINUITY OF CARE. PT IN BED WITH EYES CLOSED. AROUSABLE TO VOICE. PT ABLE TO VERBALIZE NEEDS. EVEN CHEST RISE AND FALL. RESPIRATIONS EVEN AND UNLABORED. NO DISTRESS NOTED. ALL SAFETY PRECAUTIONS IN PLACE.
[2022-02-03 08:00] VITALS: BP 125/67
[2022-02-03] MEDS: PANTOPRAZOLE 40 MG INJ VIAL IVP SCH (09:00)
[2022-02-03] MEDS: GABAPENTIN 100 MG CAP PO SCH ×3 (09:23→16:51)
[2022-02-03] MEDS: ISOSORBIDE MONONITRATE 30 MG TABER PO SCH (09:24)
[2022-02-03] MEDS: POTASSIUM CHLORIDE 10 MEQ TABER PO SCH (09:24)
[2022-02-03] MEDS: SUCRALFATE 1 GM TAB PO SCH ×4 (09:24→21:05)
[2022-02-03] MEDS: PYRIDOSTIGMINE 60 MG TAB PO SCH ×2 (09:25→21:10)
[2022-02-03] MEDS: DOCUSATE SODIUM 100 MG GELCAP PO SCH ×2 (09:27→21:10)
[2022-02-03] MEDS: FUROSEMIDE 20 MG TAB PO SCH ×2 (09:27→21:09)
[2022-02-03] MEDS: PROPRANOLOL 20 MG TAB PO SCH ×2 (09:28→21:10)
[2022-02-03] MEDS: LACTULOSE 20 GM/30 ML UDC PO SCH (09:29)
[2022-02-03] MEDS: amLODIPine 5 MG TAB PO SCH (09:29)
[2022-02-03] MEDS: APIXABAN 2.5 MG TAB PO SCH ×2 (09:32→21:20)
--- NOTE | 2022-02-03 09:38 | NUR ---
ADMINISTERED ALL SCHEDULED MORNING MEDS. PROVIDED TEACHING REGARDING MEDS. PT TOLERATING WELL. PT DAUGHTER AT BEDSIDE.
--- NOTE | 2022-02-03 11:17 | NUR ---
CHECKED ON PT. PT C/O PELVIC PAIN 09/29. PT MEDICATED BY AMANDA ROBBINS.
[2022-02-03 12:00] VITALS: BP 111/67
[2022-02-03] MEDS: MORPHINE SULFATE 2 MG/ML SYR IVP PRN ×2 (12:30→21:14)
--- NOTE | 2022-02-03 13:03 | NUR ---
ADMINISTERED ALL DUE MEDS. PT TOLERATING WELL. EATING LUNCH.
--- NOTE | 2022-02-03 15:23 | NUR ---
02/03/22 RD INITIAL ASSESSMENT COMPLETED PLEASE REFER TO NUTRITION ASSESSMENT UNDER CARE ACTIVITY FOR ESTIMATED NUTRITIONAL NEEDS. 1. CONTINUE REGULAR DIET TOLERATED 2. RECOMMEND ENSURE 1XDAY TO HELP INCREASE PT NUTRIENT INTAKE - ENSURE 1XDAY WILL PROVIDE ADDITIONAL 350 KCAL, [address] TO FOLLOW-UP 7 DAYS, LOW RISK REVIEWED BY ANNABEL SANCHEZ RD
--- NOTE | 2022-02-03 15:45 | NUR ---
PT CLEANED AND CHANGED. DAUGHTER AT BEDSIDE.
[2022-02-03 16:00] VITALS: BP 100/56
--- NOTE | 2022-02-03 16:54 | NUR ---
ADMINISTERED ALL SCHEDULED MEDS. PT TOLERATING WELL.
--- NOTE | 2022-02-03 18:47 | NUR ---
MADE ROUNDS. PT IN ROOM WATCHING TV WITH DAUGHTER AT BEDSIDE. PT C/O PAIN BUT REQUESTS TO TAKE MEDICATION FOR IT "LATER". INFORMED PT TO PRESS CALL LIGHT WHEN SHE IS READY.
--- NOTE | 2022-02-03 19:33 | NUR ---
ENDORSED PT TO COURT WORKER NURSE FOR CONTINUITY OF CARE. PT IN STABLE CONDITION.
--- NOTE | 2022-02-03 19:34 | NUR ---
RECEIVED PATIENT AWAKE ALERT ON ROOM AIR IN BED RESTING COMFORTABLY. NO DISTRESS. NO COMPLAINTS OF PAIN AT THIS TIME. CALL LIGHT WITHIN REACH. SAFETY PRECAUTIONS ARE IN PLACE.
[2022-02-03 20:00] VITALS: BP 102/58
--- NOTE | 2022-02-03 21:05 | NUR ---
SCHEDULED MEDICATIONS DUE ADMINISTERED. TOLERATED WELL.
[2022-02-03] MEDS: ATORVASTATIN 20 MG TAB PO SCH (21:10)
--- NOTE | 2022-02-03 21:14 | NUR ---
PATIENT COMPLAINED OF LEFT HIP SEVERE PAIN, MEDICATED WITH MORPHINE IVP.
--- NOTE | 2022-02-03 21:30 | NUR ---
PATIENT CLEANED AND CHANGED. NEEDS MET.
[2022-02-04] VITALS: BP 127/66
[2022-02-04 04:00] VITALS: BP 108/60
[2022-02-04] MEDS: LEVOTHYROXINE 0.088 MG TAB PO SCH (05:56)
--- NOTE | 2022-02-04 07:13 | NUR ---
GAVE REPORT TO DAY SHIFT NURSE RANJEET FOR CONTINUITY OF CARE. PATIENT STABLE.
[2022-02-04 08:00] VITALS: BP 124/74
[2022-02-04] MEDS: PANTOPRAZOLE 40 MG INJ VIAL IVP SCH (08:01)
[2022-02-04] MEDS: DOCUSATE SODIUM 100 MG GELCAP PO SCH (08:01)
[2022-02-04] MEDS: APIXABAN 2.5 MG TAB PO SCH (08:01)
[2022-02-04] MEDS: SUCRALFATE 1 GM TAB PO SCH ×3 (08:01→17:00)
[2022-02-04] MEDS: LACTULOSE 20 GM/30 ML UDC PO SCH (08:01)
[2022-02-04] MEDS: PROPRANOLOL 20 MG TAB PO SCH (08:02)
[2022-02-04] MEDS: ISOSORBIDE MONONITRATE 30 MG TABER PO SCH (08:02)
[2022-02-04] MEDS: GABAPENTIN 100 MG CAP PO SCH ×3 (08:03→17:00)
[2022-02-04] MEDS: PYRIDOSTIGMINE 60 MG TAB PO SCH (08:03)
[2022-02-04] MEDS: POTASSIUM CHLORIDE 10 MEQ TABER PO SCH (08:03)
[2022-02-04] MEDS: amLODIPine 5 MG TAB PO SCH (08:03)
[2022-02-04] MEDS: FUROSEMIDE 20 MG TAB PO SCH (08:03)
[2022-02-04] MEDS: HYDROcodone/APAP 7.5/325 MG 1 TAB PO PRN (08:04)
[2022-02-04 09:50] LABS: BASOPHILS # (AUTO) 0.1 K/uL (0.00-0.22); BASOPHILS % (AUTO) 0.8 % (0.0-2.0); EOSINOPHILS # (AUTO) 0.4 K/uL (0-0.4); EOSINOPHILS % (AUTO) 4.3 % (0.0-4.0); HEMOGLOBIN 11.2 g/dL (12.0-16.0); LYMPHOCYTES # (AUTO) 2.1 K/uL (2.5-16.5); LYMPHOCYTES % (AUTO) 20.4 % (20.5-51.1); MEAN CORPUSCULAR HEMOGLOBIN 30 pg (27-31); MEAN CORPUSCULAR HGB CONC 33 g/dL (33-37); MEAN CORPUSCULAR VOLUME 91.7 fL (80-94); MONOCYTES # (AUTO) 0.9 K/uL (0.8-1.0); MONOCYTES % (AUTO) 8.5 % (1.7-9.3); NEUTROPHILS # (AUTO) 6.7 K/uL (1.8-7.7); PLATELET COUNT (AUTO) 323 K/uL (140-450); RED CELL DISTRIBUTION WIDTH 15.5 % (11.6-13.7); WHITE BLOOD COUNT (AUTO) 10.1 K/uL (4.8-10.8)
[2022-02-04 09:59] LABS: ANION GAP 14.5 (8-16); CARBON DIOXIDE 26.9 mmol/L (21-32); CHLORIDE 101 mmol/L (98-107); CREATININE 0.8 mg/dL (0.6-1.3); GLUCOSE 154 mg/dL (74-106); POTASSIUM 4.4 mmol/L (3.5-5.1); SODIUM SERUM 138 mmol/L (136-145); UREA NITROGEN, BLOOD 12 mg/dL (7-18)
[2022-02-04 12:00] VITALS: BP 109/62
--- NOTE | 2022-02-04 15:01 | NUR ---
Contacted [facility] Mccoy and gave report to Faraz/AMANDA
[2022-02-04 15:25] VITALS: BP 122/76
[2022-02-04 16:00] VITALS: BP 109/62
[2022-02-04] MEDS: MORPHINE SULFATE 2 MG/ML SYR IVP PRN (16:39)
--- NOTE | 2022-02-04 18:04 | NUR ---
Pt. DC to acute rehab in stable condition. Afebrile. Picked up by ambulance with 2 EMT. No acute distress noted at this time.
== END 2022-02-04 18:14 | DRG 536 ==
LOC: MED 21:35 → MTU 01-28 08:03 → MMU 01-28 08:51
DX: S32.9XXA Fracture of unspecified parts of lumbosacral spine and pelvis, initial encounter for closed fracture (principal); Z20.822 Contact with and (suspected) exposure to COVID-19; I11.0 Hypertensive heart disease with heart failure; E78.5 Hyperlipidemia, unspecified; E03.9 Hypothyroidism, unspecified; K21.9 Gastro-esophageal reflux disease without esophagitis; F32.A Depression, unspecified; K59.00 Constipation, unspecified; X58.XXXA Exposure to other specified factors, initial encounter; Y93.89 Activity, other specified; Y92.89 Other specified places as the place of occurrence of the external cause; Y99.8 Other external cause status; I50.9 Heart failure, unspecified
CPT/HCPCS: 36415; 70450; 71045; 72192; 73502; 74018; 80048; 80305; 81001; 82140; 82150; 83036; 83605; 83690; 83735; 83880; 84100; 84439; 84443; 84484; 85025; 85610; 85730; 87040; 87081; 87086; 96361; 96374; 96375; 97116; 97163-GP; 97530; 99285; C9113; J0696; J2270; J2405; J3475; J7060; Q0092